=== PATIENT | female | born 1955 | race Caucasian/White ===

== ENCOUNTER 2025-02-17 07:22 | Day surgery (SDC) | payer MEDICARE, BC, SELFPAY ==
[2025-02-17] VITALS (24 sets, daily range): BP systolic 117–175; BP diastolic 62–92; PULSE 47–78; RESP 12–20; TEMP 35.3–36.9; O2SAT 93–99; BMI 32.7
[2025-02-17] MEDS: SODIUM CHLORIDE 0.9 % (FLUSH) 10 ML SYRINGE IVF (08:14)
[2025-02-17] MEDS: LACTATED RINGERS 1000 ML 1,000 ML 100 ML IV ×2 (08:15→11:07)
--- NOTE | 2025-02-17 08:17 | W.PM.H&PU ---
History & Physical Update History & Physical Update H&P Reviewed and patient assessed: No changes noted
[2025-02-17] MEDS: ACETAMINOPHEN 500 MG TABLET 1000 MG PO ×3 (09:07→21:03)
[2025-02-17] MEDS: OXYCODONE (CR) 10 MG TAB.ER.12H PO (09:07)
[2025-02-17] MEDS: fentaNYL 100 MCG/2 ML inj IVP (09:12)
[2025-02-17] MEDS: MIDAZOLAM HCL 1 MG/ML inj IVP (09:12)
--- NOTE | 2025-02-17 09:17 | SUR.PREOP ---
TIME?OUT:?0910, right knee PT/RN/MDA?VERIFICATION?OF?SURGICAL?SITE,?PROCEDURE,?AND?CONSENT OBTAINED?PRIOR?TO?INVASIVE?PROCEDURE.
--- NOTE | 2025-02-17 09:51 | CRLHL7_ITS ---
For Patients: As a result of the Cures Act, medical imaging exams and procedure reports are released immediately into your electronic medical record. You may view this report before your referring provider. If you have questions, please contact your health care provider. Indication: Postop Technique: Two views right knee Findings/Impression: Hardware from a right total knee arthroplasty is in satisfactory position. Bone alignment is normal. No sign of acute fracture. Postop changes are within normal limits. Dictated by Pedro Dumont MD @ 02/17/2025 2:41:37 PM (Electronically Signed)
[2025-02-17] MEDS: TRANEXAMIC ACID 100 MG/ML INJ 1000 MG IV (10:06)
[2025-02-17] MEDS: CEFAZOLIN 2 GM in 0.9 % SODIUM CHLORIDE Mini-bag 100 ML IVPB ×2 (10:06→18:19)
--- NOTE | 2025-02-17 11:12 | P.ORPRC_ITS ---
Procedure Note Date of procedure: 02/17/25 Procedure: PREOPERATIVE DIAGNOSIS: 1. Right knee osteoarthritis, primary, severe POSTOPERATIVE DIAGNOSIS: 1. Right knee osteoarthritis, primary, severe PROCEDURE: 1. Right total knee arthroplasty, subvastus SURGEON: Obie Sherman MD. SUPERVISOR BENZENE REFINING: Abdias Hinton PA-C - Of note, a skilled advertising sales assistant was critical for this case to aid in patient positioning, tissue retraction, limb manipulation/positioning, and closure. ANESTHESIA: Spinal anesthetic EBL: 50ml IMPLANTS: DePuy J&J uncemented TKA - Attune PS femur size 7 Size 5 tibia 5 poly spacer 35 mm Affixium patella TOURNIQUET: 70 minutes at 300 torr COMPLICATIONS: None evident INDICATIONS: The patient is a pleasant 69-year-old female who has experienced severe right knee pain and difficulty bearing weight. Workup included x-rays which revealed severe osteoarthrosis in the knee. Given the deformity, the dysfunction, and the pain, as well as the failure of nonoperative management, recommendation was made for surgery. FINDINGS: Full-thickness chondral loss diffusely throughout the medial compartment and to a lesser degree patellofemoral and lateral compartment. Degenerative meniscus pathology medial greater than lateral. DESCRIPTION OF PROCEDURE: Following a thorough discussion of risks, benefits, and alternatives consent was obtained and the right knee was marked. The patient was brought to the operating room and placed supine on the operating table. Induction of anesthesia was undertaken. 2 g IV Ancef and 1 g tranexamic acid was administered within 1 hr of incision preoperatively. Proper time-out was performed identifying proper patient, site, procedure. The operative extremity was prepped and draped in the appropriate sterile fashion using ChloraPrep after the patient was positioned supine with all bony prominences well padded. A longitudinal, anterior, midline skin incision was made starting approximately 3cm proximal to the superior pole of the patella and advanced distal to the tibial tubercle. A sub vastus approach was utilized . After mobilizing the patella, retropatellar fatpad was resected and the synovium in the suprapatellar pouch excised to visualize the anterior femoral cortex. Patellar prep began with an initial measurement/thickness of 24 mm. It was resected back to approximately 14 mm. The patella prep was completed with drilling and a trial placed. Femoral preparation was performed via an intramedullary guide. Step drill allowed access into the femoral canal. The distal cutting guide was placed with 5? of valgus and 10 mm cut on the distal femur. Femur was sized using a anterior referencing guide in 3? of external rotation. This found have a best fit with the sizing noted above. The 4 in 1 cutting block was then placed, and the distal femur shaped accordingly. The box cut was then created and the trial implant inserted to confirm appropriate fit. We turned our attention to the proximal tibia. Extramedullary guide was utilize d for cutting with the goal of being 90 degree cut from the mechanical axis of the tibia in the varus/valgus plane utilizing tibial crest as the primary alignment. Initially a 2 mm resection was performed from the medial tibial plateau. Ultimately, balancing was achieved in both flexion and extension in both varus and valgus. The knee was able to achieve full extension comfortably. It was sized to be a best fit with as noted above. At this stage, trial implants were removed, the tibia and femoral and patellar components were opened and inserted. The real poly spacer was opened and inser rogelio. A 3 min Betadine soak performed. Finally, a final irrigation round with normal saline was performed. Closure performed with 0 PDS and #0 Stratafix for the quad tendon/retinaculum. 2-0 Vicryl/Stratafix for the subcutaneous and 4-0 Monocryl for subcuticular closure. Dressings were applied and the patient was awoken from anesthesia after the tourniquet deflated and transferred the PACU in stable condition. A skilled advertising sales assistant was critical for this case to aid in patient positioning, tissue retraction, bone exposure, limb manipulation/positioning, patient safety, and closure. PLAN: 1. Weight bear as tolerated operative extremity. 2. 23 hr perioperative antibiotics. 3. Ice. 4. PT/OT consults for ambulation assistance/mobility education. 5. Social work consult for discharge planning. 6. DVT prophylaxis with at SCDs, and aspirin twice daily.
--- NOTE | 2025-02-17 11:40 | P.ANES_ITS ---
Anesthesia Charges Start Date/Time Anesthesia Start Date: 02/17/25 Anesthesia Start Time: 09:30 Stop Date/Time Anesthesia Stop Date: 02/17/25 Anesthesia Stop Time: 11:40 Coding CPT Codes CPT Codes: ANESTH KNEE ARTHROPLASTY - 11694 ([id number]) P2 - PATIENT W/MILD SYST DISEASE, QK - PARTS CLERK PLANT MAINTENANCE 2-4 CNCRNT ANES PROC, QX - RUG HOOKER SVC W/ MD MED DIRECTION
--- NOTE | 2025-02-17 11:40 | W.ANESCHARGE ---
Anesthesia Charges Start Date/Time Anesthesia Start Date: 02/17/25 Anesthesia Start Time: 09:30 Stop Date/Time Anesthesia Stop Date: 02/17/25 Anesthesia Stop Time: 11:40 Coding CPT Codes CPT Codes: ANESTH KNEE ARTHROPLASTY - 04982 ([id number]) P2 - PATIENT W/MILD SYST DISEASE, QK - VETERINARY MILK SPECIALIST 2-4 CNCRNT ANES PROC, QX - DERMATOLOGY SALES REPRESENTATIVE SVC W/ MD MED DIRECTION
--- NOTE | 2025-02-17 12:25 | P.ANES_ITS ---
Anesthesia Charges Start Date/Time Anesthesia Start Date: 02/17/25 Anesthesia Start Time: 09:30 Stop Date/Time Anesthesia Stop Date: 02/17/25 Anesthesia Stop Time: 11:40 Coding CPT Codes CPT Codes: ANESTH KNEE ARTHROPLASTY - 36428 ([id number]) QK - WASTE SPECIALIST 2-4 CNCRNT ANES PROC, QX - ROPE COILING MACHINE OPERATOR SVC W/ MD MED DIRECTION, P2 - PATIENT W/MILD SYST DISEASE
--- NOTE | 2025-02-17 12:25 | W.ANESCHARGE ---
Anesthesia Charges Start Date/Time Anesthesia Start Date: 02/17/25 Anesthesia Start Time: 09:30 Stop Date/Time Anesthesia Stop Date: 02/17/25 Anesthesia Stop Time: 11:40 Coding CPT Codes CPT Codes: ANESTH KNEE ARTHROPLASTY - 54153 ([id number]) QK - DETACHER 2-4 CNCRNT ANES PROC, QX - SURVEY METHODOLOGIST SVC W/ MD MED DIRECTION, P2 - PATIENT W/MILD SYST DISEASE
--- NOTE | 2025-02-17 12:26 | P.NB_ITS ---
Nerve Block Nerve Block Time Seen by Provider: 09:15 Date Seen: 02/17/25 Type of block requested by surgeon for post-operative analgesia: adductor canal Side: right Time out performed: Yes Verification of patient name: Yes Verification of date of : Yes Site marking: site marked Name of person performing procedure: Abram Continuous monitoring Was continuous monitoring of O2 sat, B/P, cardiac catheterization technician, recorded every 15 minutes?: Yes Procedure Checklist: sterile prep, needles and gloves Ultrasound guided. Images saved: Yes Medications given in 5ml increments after negative aspiration: Marcaine %: 0.25 mL: 15 Needle gauge: 20 Precedex (mcg): 25 Patient tolerated procedure well: Yes Block Charges Block Charge (with Pro Fee): Femoral Nerve Use of Ultrasound Machine for Block: Yes- US Guidance/pain block
--- NOTE | 2025-02-17 12:26 | P.NB_ITS ---
Nerve Block Nerve Block Time Seen by Provider: 09:15 Date Seen: 02/17/25 Type of block requested by surgeon for post-operative analgesia: geniculars Side: right Time out performed: Yes Verification of patient name: Yes Verification of date of : Yes Site marking: site marked Name of person performing procedure: Abram Continuous monitoring Was continuous monitoring of O2 sat, B/P, shelter monitor, recorded every 15 minutes?: Yes Procedure Checklist: sterile prep, needles and gloves Ultrasound guided. Images saved: Yes Medications given in 5ml increments after negative aspiration: Marcaine %: 0.25 mL: 9 Needle gauge: 25 Patient tolerated procedure well: Yes Block Charges Block Charge (with Pro Fee): Genicular Nerve Block
[2025-02-17] MEDS: OXYCODONE 5 MG TABLET PO ×2 (13:57→21:04)
--- NOTE | 2025-02-17 14:51 | P.IMCN_ITS ---
Date of Consult Patient: Regulo Patient Consult date: 02/17/25 Requesting Physician: Orthopedics Primary Care Provider: Laurie Johansen PA-C Consult Narrative Narrative: Barb Mejia is a 69 year old female admitted to the hospital for right total knee arthroplasty. Procedures performed by Dr. Sherman. There were no operative complications. He requests consultation for medical management after surgery. Patient reports generally doing well except she is having some pain behind her operative knee in the proximal calf. She describes it as a tight sensation there. Pain is otherwise relatively well managed. She has no nausea or dyspnea. Preoperatively she reports she was doing well she had a preoperative evaluation which identified no significant concerns for her elective surgery and perioperative care. No previous history of problems with anesthesia, bleeding or clotting disorders. Review of Systems Narrative: She reports feeling well recently with no other health concerns. [facility] Medical History (Updated 02/17/25 @ 15:09 by Torito Barker MD) Obesity (BMI 30.0-34.9) ?E66.811 - Obesity, class 1 (ICD-10) Malignant neoplasm of upper-outer quadrant of right breast in female, estrogen receptor positive ?C50.411 - Malignant neoplasm of upper-outer quadrant of right female breast (ICD-10) ?Z17.0 - Estrogen receptor positive status [ER+] (ICD-10) Depression, recurrent ?F33.9 - Major depressive disorder, recurrent, unspecified (ICD-10) LUCIO (generalized anxiety disorder) ?F41.1 - Generalized anxiety disorder (ICD-10) Mixed hyperlipidemia ?E78.2 - Mixed hyperlipidemia (ICD-10) Hypertension ?I10 - Essential (primary) hypertension (ICD-10) Breast cancer (01/2022) ?C50.919 - Malignant neoplasm of unspecified site of unspecified female breast (ICD-10) Surgical History History of arthroplasty of right knee ?Z96.651 - Presence of right artificial knee joint (ICD-10) History of tubal ligation ?Z98.51 - Tubal ligation status (ICD-10) History of lumpectomy of right breast ?Z98.890 - Other specified postprocedural states (ICD-10) Family History Father COPD (chronic obstructive pulmonary disease) Brother Colon cancer Sister Breast cancer Social History Narrative: She lives with her , Dima, in [place]. They live in a split-level house. Healthcare power of attorney lawyer is primarily her , secondarily her daughter Lolly and then her other 2 children, Adi and Manuel. Code status is full. She does not smoke. She does not drink alcohol. What is your current living situation?: I presently have a place to live In the past 12 months, utilities in danger of being shut off: no In past 12 months, lack of transportation kept you from medical appts, meetings, work, or getting things needed for daily living: no In the past 12 mos, have been you worried that your food would run out before you had money to buy more?: never true In the past 12 mos, the food you bought just didn't last and you didn't have money to buy more?: never true Smoking Status: Never smoker How often do you have a drink containing alcohol: never AUDIT-C Alcohol total score: 0 Non-prescribed substance use: denies use How often does anyone, including family, friends and others, physically hurt you : never How often does anyone, including family, friends and others, insult or talk down to you: never How often does anyone, including family, friends and others, threaten you with harm: never How often does anyone, including family, friends and others, scream or curse at you: never service: No Meds Home Medications and Allergies Home Medications ?Medication ?Instructions ?Recorded ?Confirmed ?Type Calcium 500 mg PO BID 11/13/24 02/17/25 History Vitamin D PO 11/13/24 01/26/25 History anastrozole 1 mg tablet 1 mg PO DAILY 01/26/25 02/17/25 History gabapentin 300 mg capsule 300 mg PO BID 01/26/25 02/17/25 History lisinopril 10 mg tablet 10 mg PO DAILY 01/26/25 02/17/25 History metoprolol succinate 100 mg 100 mg PO DAILY 01/26/25 02/17/25 History tablet,extended release 24 hr sertraline 50 mg tablet 50 mg PO DAILY 01/26/25 02/17/25 History simvastatin 20 mg tablet 20 mg PO HS 01/26/25 02/17/25 History Allergies Allergy/AdvReac Type Severity Reaction Status Date / Time No Known Drug Allergies Allergy Verified 02/17/25 07:32 Exam Narrative: Exam Narrative: She is alert and appears in no distress. She gives her own history. Oropharynx is normal except for small airway. Neck is supple without mass or adenopathy. Respirations are clear to auscultation. Cardiovascular: S1, S2, regular rate and rhythm. No murmur gallop or rub. Abdomen: Bowel sounds active. Abdomen is soft without tenderness or mass. Right knee is wrapped with a bandage. Bilateral lower extremities with intact sensation, intact motion and strength in both feet and ankles, intact pedal pulses. Const: Vital Signs, click to edit/add: Vital Signs - 24 hr 02/17/25 07:57 02/17/25 09:10 02/17/25 09:15 Temperature 98.5 F Pulse Rate 59 L 54 L 55 L Respiratory Rate 20 20 20 Blood Pressure 155/70 H 175/84 H 147/77 H Pulse Oximetry 96 96 97 Oxygen Delivery Me thod Room Air Nasal Cannula Nasal Cannula Oxygen Flow Rate 2 2 02/17/25 09:21 02/17/25 11:40 02/17/25 11:45 Temperature 98 F Pulse Rate 51 L 49 L 47 L Respiratory Rate 20 12 12 Blood Pressure 135/64 134/71 137/69 Pulse Oximetry 97 93 99 Oxygen Delivery Me thod Nasal Cannula Room Air Room Air Oxygen Flow Rate 2 02/17/25 11:50 02/17/25 11:55 02/17/25 12:00 Temperature Pulse Rate 53 L 50 L 49 L Respiratory Rate 12 12 12 Blood Pressure 125/79 141/72 H 136/74 Pulse Oximetry 97 98 95 Oxygen Delivery Me thod Room Air Room Air Room Air Oxygen Flow Rate 02/17/25 12:05 02/17/25 12:10 02/17/25 12:19 Temperature 97 F L 96.4 F L Pulse Rate 48 L 51 L 58 L Respiratory Rate 12 12 16 Blood Pressure 139/69 135/69 129/74 Pulse Oximetry 94 94 98 Oxygen Delivery Me thod Room Air Room Air Room Air Oxygen Flow Rate 02/17/25 12:30 02/17/25 12:45 02/17/25 13:00 Temperature 96.4 F L 96.5 F L 95.5 F L Pulse Rate 50 L 51 L 50 L Respiratory Rate 16 16 16 Blood Pressure 129/63 140/76 H 117/89 Pulse Oximetry 97 93 94 Oxygen Delivery Me thod Room Air Room Air Room Air Oxygen Flow Rate 02/17/25 13:15 02/17/25 13:45 Temperature 95.9 F L Pulse Rate 54 L 55 L Respiratory Rate 16 20 Blood Pressure 150/77 H 144/66 H Pulse Oximetry 97 95 Oxygen Delivery Me thod Room Air Room Air Oxygen Flow Rate Documenting provider has reviewed patient's vital signs: yes Assessment and Plan Assessment and plan (1) History of arthroplasty of right knee: Problem comment: 02/17/2025, Dr. Sherman Status: Acute (2) Hypertension: Status: Acute (3) Obesity (BMI 30.0-34.9): Status: Acute (4) Obstructive sleep apnea: Problem comment: Suspected based on history of snoring, BMI, anatomy of oropharynx Status: Suspected Plan 69-year-old female admitted to the hospital for management of postoperative care following knee arthroplasty. Anticipate routine management of pain and routine therapy. Patient appears at risk for complications related to sleep apnea. Resume antihypertensives as blood pressure allows. Total Time Spent Total Time Spent: Total time spent today is 35 minutes in review of outside records, coordination of care and discussing with patient and ongoing evaluation and management of recovery from knee surgery
[2025-02-17] MEDS: ASPIRIN 81 MG TABLET EC PO (21:03)
[2025-02-17] MEDS: GABAPENTIN 300 MG CAPSULE PO (21:03)
[2025-02-17] MEDS: SENNOSIDES 1 TAB TABLET 2 TAB PO (21:04)
[2025-02-17] MEDS: SIMVASTATIN 20 MG TABLET PO (21:05)
--- NOTE | 2025-02-17 23:25 | PC.NURSE ---
Shift Note: Pt friendly and cooperative, able to verbalize her needs. VS WNL and LS COA. Surgical dressing to right knee C,D,&I with active ice in place. Pain 6/10 at HS, pt given PRN Oxycodone and scheduled Tylenol. Moves well with SBA with GB and walker. Plans to discharge home tomorrow with her .
[2025-02-18] MEDS: OXYCODONE 5 MG TABLET PO ×3 (00:06→11:49)
[2025-02-18] MEDS: CEFAZOLIN 2 GM in 0.9 % SODIUM CHLORIDE Mini-bag 100 ML IVPB ×2 (02:21→09:53)
[2025-02-18 03:00] VITALS: BP 153/89; PULSE 77; RESP 18; TEMP 36.7; O2SAT 100
[2025-02-18] MEDS: ACETAMINOPHEN 500 MG TABLET 1000 MG PO ×2 (04:38→09:54)
--- NOTE | 2025-02-18 06:01 | PC.NURSE ---
[id number]: Pt alert, oriented and vitally stable. Dressing C/D/I. Active ice applied. Pain rated 8/10, prn oxy given, pt stated improvement. Denies dizziness and nausea. SBA tolerated it well. Pt in bed, appears to be resting, call light within reach.?
[2025-02-18 07:00] VITALS: BP 154/63; PULSE 72; RESP 18; TEMP 36.4; O2SAT 97; O2SAT 98
[2025-02-18 07:32] LABS: Basophils Absolute Auto 0.01 K/uL (0.00-0.30); Basophils Percent Auto 0.1 % (0.0-3.0); Eosinophils Absolute Auto 0.01 K/uL (0.00-0.50); Eosinophils Percent Auto 0.1 % (0.0-7.0); Hematocrit 35.1 % (33.0-51.0); Hemoglobin* 11.7 gm/dL (12.0-16.0); Immature Granulocytes Abs Auto 0.01 K/uL (0.00-0.30); Immature Granulocytes Pct Auto 0.1 %; Lymphocytes Percent Auto 12.2 % (20-44); Mean Corpuscular HGB Conc 33 gm/dL (32-36); Mean Corpuscular Hemoglobin 29 pg (26-34); Mean Corpuscular Volume 88 fL (80-100); Monocytes Percent Auto 8.4 % (0.0-11.0); Neutrophils Percent Auto 79.1 % (42.0-72.0); Platelet Count* 279 K/uL (140-440); RDW Coefficient of Variation % 12.3 % (11.5-15.5); Red Blood Count 4.01 m/uL (4.00-5.20); White Blood Count* 9.48 K/uL (4.50-11.00)
[2025-02-18 07:40] LABS: Slide Review Reflex No
[2025-02-18 07:40] LABS: Potassium* 4.2 mmol/L (3.6-5.1); Sodium* 137 mmol/L (135-149)
[2025-02-18 07:43] LABS: Blood Urea Nitrogen* 19 mg/dL (7-30); Creatinine* 0.6 mg/dL (0.5-1.5); Est. Creatinine Clearance* 58.23; Estimated Glomerular Filt Rate 98 ml/min
[2025-02-18] MEDS: METOPROLOL SUCCINATE (XL) 100 MG TAB PO (09:52)
[2025-02-18] MEDS: SENNOSIDES 1 TAB TABLET 2 TAB PO (09:52)
[2025-02-18] MEDS: ASPIRIN 81 MG TABLET EC PO (09:52)
[2025-02-18] MEDS: lisinopriL 10 MG TABLET PO (09:52)
[2025-02-18] MEDS: GABAPENTIN 300 MG CAPSULE PO (09:52)
[2025-02-18] MEDS: SERTRALINE 50 MG TABLET PO (09:53)
[2025-02-18 10:00] VITALS: BP 136/61; PULSE 66; RESP 18; TEMP 36.3; O2SAT 98
--- NOTE | 2025-02-18 12:08 | PC.NURSE ---
Pt discharged @ 1200 via wheelchair, accompanied by . Back to home. IV removed. Belonging/Discharge forms signed. Pain managed. No nausea present. Pt in good condition. Dressing CDI. Final room check complete.
--- NOTE | 2025-02-18 12:32 | PM.ORPN ---
Subjective Subjective Date Seen: 02/18/25 Principal diagnosis: Status postop day 1 right total knee arthroplasty Interval history: Patient reports doing well. No acute events over night. Pain typically over the anterior knee, pinching, sharp pain. Pain managed with scheduled and PRN medications, ice. DVT prophylaxis: 81 mg aspirin by mouth twice daily, SCDs, walking. Denies fevers, chills, aches, N/V, CP, SOB/ROSENTHAL, or lightheadedness. Ortho Exam Narrative Exam Narrative: -Patient appears comfortable; no apparent acute distress -Alert and oriented times 3 -Operative knee moderately swollen; soft tissues supple; no ecchymosis; no erythematous streaking Warmth appropriate -Surgical dressing clean, dry, intact; no drainage -Bilateral calfs soft; no significant swelling, edema, tenderness, erythema, discoloration, warmth, or palpable cords -2+ DP/PT pulses, intact dermatomes and myotomes distally (5/5 strength) Const Vital Signs, click to edit/add: Vital Signs - 24 hr 02/17/25 12:45 02/17/25 13:00 02/17/25 13:15 Temperature 96.5 F L 95.5 F L 95.9 F L Pulse Rate 51 L 50 L 54 L Pulse Rate [Right Pulse Oximeter] Respiratory Rate 16 16 16 Blood Pressure 140/76 H 117/89 150/77 H Blood Pressure [Left Arm] Pulse Oximetry 93 94 97 Oxygen Delivery Method Room Air Room Air Room Air 02/17/25 13:45 02/17/25 14:20 02/17/25 15:00 Temperature 97.7 F Pulse Rate 55 L 61 Pulse Rate [Right Pulse Oximeter] Respiratory Rate 20 18 Blood Pressure 144/66 H 137/80 Blood Pressure [Left Arm] Pulse Oximetry 95 96 95 Oxygen Delivery Method Room Air Room Air 02/17/25 15:00 02/17/25 15:00 02/17/25 15:20 Temperature 97.9 F Pulse Rate 57 L Pulse Rate [Right Pulse Oximeter] 57 L Respiratory Rate 18 18 18 Blood Pressure 134/92 H Blood Pressure [Left Arm] Pulse Oximetry 95 95 Oxygen Delivery Method Room Air Room Air 02/17/25 16:20 02/17/25 17:20 02/17/25 18:20 Temperature 97.6 F Pulse Rate 70 71 70 Pulse Rate [Right Pulse Oximeter] Respiratory Rate 18 18 18 Blood Pressure 134/62 130/65 144/74 H Blood Pressure [Left Arm] Pulse Oximetry 94 97 99 Oxygen Delivery Method Room Air Room Air Room Air 02/17/25 23:00 02/17/25 23:00 02/17/25 23:00 Temperature 98.2 F Pulse Rate Pulse Rate [Right Pulse Oximeter] 78 Respiratory Rate 16 Blood Pressure Blood Pressure [Left Arm] 148/73 H Pulse Oximetry 99 99 99 Oxygen Delivery Method Room Air Room Air 02/17/25 23:00 02/18/25 03:00 02/18/25 07:00 Temperature 98.0 F 97.6 F Pulse Rate Pulse Rate [Right Pulse Oximeter] 78 77 72 Respiratory Rate 16 18 18 Blood Pressure Blood Pressure [Left Arm] 153/89 H 154/63 H Pulse Oximetry 100 97 Oxygen Delivery Method Room Air Room Air 02/18/25 07:00 02/18/25 07:00 02/18/25 10:00 Temperature 97.4 F L Pulse Rate Pulse Rate [Right Pulse Oximeter] 66 Respiratory Rate 18 18 Blood Pressure Blood Pressure [Left Arm] 136/61 Pulse Oximetry 98 98 98 Oxygen Delivery Method Room Air Room Air Assessment and Plan Assessment and plan (1) History of arthroplasty of right knee: Problem details: Right total knee arthroplasty, subvastus (02/17/2025, Dr. Sherman) - press fit Status: Acute (2) Hypertension: Status: Acute (3) Obesity (BMI 30.0-34.9): Status: Acute (4) Obstructive sleep apnea: Problem details: Suspected based on history of snoring, BMI, anatomy of oropharynx Status: Suspected Plan - Complete 23 hour perioperative antibiotics. - PT/OT consult for education and assistance. - Social work consult for discharge planning - Prescribed analgesics as needed - DVT prophylaxis: 81 mg aspirin by mouth twice daily, walking, and SCDs - Anticipation is for discharge to home with today 02/18/2025 if the patient remains medically stable, pain is controlled, and they are safe with mobilization.
== END 2025-02-18 12:00 | disposition home or self-care (01) ==
LOC: OR 07:22 → MEDSURG 07:24
PROVIDERS: PCP Physician Assistant; Visit Provider Orthopaedic Surgery Sports Medicine
PROC: (CPT 27447; principal; 2025-02-17 09:30)
DX: M17.11 Unilateral primary osteoarthritis, right knee (principal); G89.18 Other acute postprocedural pain; E66.811 Obesity, class 1; I10 Essential (primary) hypertension; G47.33 Obstructive sleep apnea (adult) (pediatric); F41.1 Generalized anxiety disorder; F33.9 Major depressive disorder, recurrent, unspecified; C50.411 Malignant neoplasm of upper-outer quadrant of right female breast; Z17.0 Estrogen receptor positive status [ER+]; Z68.34 Body mass index [BMI] 34.0-34.9, adult; E78.2 Mixed hyperlipidemia
CPT/HCPCS: 27447; 01402; 36415; 64447; 64454; 73560; 76942; 82565; 84132; 84295; 84520; 85025; 97110; 97116; 97161; 97165; 97530; 97535; A9270; C1776; J0665; J0690; J1100; J2250; J2405; J2704; J3010; J7120

== ENCOUNTER 2025-08-12 07:50 | Outpatient (CLI) | payer MEDICARE, BC, SELFPAY ==
--- NOTE | 2025-08-12 08:15 | MR_ITS ---
EXAM: MRI OF THE LEFT KNEE CLINICAL INFORMATION: The patient is a 69-year-old with left knee pain. Evaluate for meniscal tear. PRIOR SURGERY: None reported. COMPARISON STUDIES: Comparison is made to prior radiographs dated 08/03/2025. TECHNICAL INFORMATION: Imaging was performed on a high-field, 1.5 [employer] MR scanner. Sagittal proton-density and fat-suppressed proton-density imaging was performed in addition to coronal proton-density and coronal STIR imaging. Axial proton-density and axial fat-suppressed T2 imaging was also performed. FINDINGS: Articular/Extraarticular collections: Effusion: Moderate. Popliteal cyst: Moderate to large, seen on sagittal series 7 image 10. Loose bodies: No well-defined intra-articular loose bodies are present. Subcutaneous and extraarticular soft tissues: Within normal limits. Osseous structures: Reactive bony changes are seen along the medial articular surfaces of the medial femoral condyle and medial tibial plateau, in keeping with the meniscal tearing and chondral loss discussed below. Additional reactive bony changes are seen involving the posterior aspect of the lateral tibial plateau on coronal series 9 image 22. No evidence for acute bony injury about the knee can be seen. There is no evidence for fracture, contusion, or stress injury. Ligamentous structures: ACL: The anterior cruciate ligament is abnormal in appearance. There is a chronic severe sprain of the ACL with thickening and indistinctness. Arthrofibrosis can be seen with a cyclops lesion extending anteriorly on sagittal series 7 image 17 and on coronal series 9 image 13. No well-defined transverse disruption of ACL fibers is noted. PCL: Intact and normal in appearance. MCL: Intact and normal in appearance. LCL: Intact and normal in appearance. Posterolateral corner: Intact and normal in appearance. Posteromedial corner: No posteromedial corner soft tissue injury. Semimembranosus and pes anserine tendons demonstrate no tendinopathy or associated bursitis. Extensor mechanism/Patellar retinacular structures: Patellar tendon: Intact, without tendinopathy. Quadriceps tendon: Intact, without tendinopathy. Retinacula: The medial and lateral retinacula are intact. The medial patellofemoral ligament is intact. Medial compartment: Medial meniscus: The medial meniscus is abnormal in appearance. There is apical free edge and superior surface tearing of the middle and posterior portions seen on sagittal series 7 image 11 and on coronal series 8 image 18. The area of tearing measures approximately 28 mm in anteroposterior dimension and 31 mm in mediolateral dimension. Intrasubstance degeneration of the anterior horn is noted. No parameniscal cyst formation is seen. Medial femoral condyle: Full-thickness and near full-thickness chondral loss can be seen along the central and posterior articular surfaces of the medial femoral condyle. Medial tibial plateau: Full-thickness and near full-thickness chondral loss can be seen along the weightbearing surfaces of the medial tibial plateau. Lateral compartment: Lateral meniscus: Broad-based, complex tearing and degeneration of the anterior, middle, and posterior portions of the lateral meniscus can be seen on sagittal series 7 image 23 and on coronal series 8 image 19. No parameniscal cyst formation is identified. Lateral femoral condyle: Full-thickness and near full-thickness chondral loss can be seen along the central and posterior articular surfaces of the lateral femoral condyle. Lateral tibial plateau: Full-thickness and near full-thickness chondral loss can be seen along the weightbearing surfaces of the lateral tibial plateau. Patellofemoral compartment: Patella: Full-thickness and near full-thickness chondral loss can be seen involving the patellar apex and adjacent portions of the medial and lateral patellar facets on axial series 4 image 12, measuring 25 mm in mediolateral dimension and 20 mm in craniocaudal dimension. Trochlea: Full-thickness and near full-thickness chondral loss can be seen along the central articular surfaces of the femoral trochlea. Neurovascular: No definite neurovascular abnormalities are seen. CONCLUSION: 1. 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 2. Broad-based tearing of the medial and lateral menisci. 3. Full-thickness and near full-thickness chondral loss involving all 3 joint compartments as described above. 4. Moderate knee joint effusion and moderate to large popliteal cyst. [facility] Electronically signed on 08/12/2025 10:31:00 AM by Jordon Hawkins M.D.
== END 2025-08-12 07:51 | disposition home or self-care (01) ==
LOC: MRI 07:52
PROVIDERS: PCP Physician Assistant; Visit Provider Orthopaedic Surgery Sports Medicine
DX: M25.562 Pain in left knee (principal); S83.512A Sprain of anterior cruciate ligament of left knee, initial encounter; S83.282A Other tear of lateral meniscus, current injury, left knee, initial encounter; S83.242A Other tear of medial meniscus, current injury, left knee, initial encounter; M25.462 Effusion, left knee; M17.12 Unilateral primary osteoarthritis, left knee
CPT/HCPCS: 73721